=== PATIENT | male | born 2000 | race Caucasian/White ===

== ENCOUNTER 2019-07-05 12:01 | Emergency (ER) | payer MEDICAID ==
[~2019-07-05] VITALS: Ht 185.4 cm; Wt 104.3 kg
[2019-07-05 12:14] VITALS: BP_SYST 153
[2019-07-05 13:06] LABS: BASOPHILS % (AUTO) 0.4 % (0.0-2.0); EOSINOPHILS % (AUTO) 0.4 % (0.0-4.0); HEMATOCRIT 44.8 % (36-54); HEMOGLOBIN 15.2 g/dL (14.0-18.0); LYMPHOCYTES # (AUTO) 1.5 K/uL (1.0-5.5); LYMPHOCYTES % (AUTO) 18.1 % (20.5-51.5); MEAN CORPUSCULAR HEMOGLOBIN 30 pg (27-31); MEAN CORPUSCULAR HGB CONC 34 % (32-36); MEAN CORPUSCULAR VOLUME 87 fL (79.0-98.0); MONOCYTES # (AUTO) 0.8 K/uL (0.0-1.0); MONOCYTES % (AUTO) 9.1 % (1.7-9.3); NEUTROPHILS # (AUTO) 6.1 K/uL (1.8-7.7); PLATELET COUNT (AUTO) 259 K/uL (130-430); RED BLOOD CELL COUNT(AUTO) 5.16 MIL/uL (4.2-6.2); RED CELL DISTRIBUTION WIDTH 14.1 % (9.0-15.0); WHITE BLOOD COUNT (AUTO) 8.4 K/uL (4.5-11.0)
[2019-07-05 13:15] LABS: ANION GAP 10 (5-15); CALCIUM 9.4 mg/dL (8.4-11.0); CHLORIDE 103 mmol/L (98-107); CREATININE 0.77 mg/dL (0.55-1.30); GLUCOSE 88 mg/dL (70-99); POTASSIUM 3.8 mmol/L (3.5-5.1); SODIUM SERUM 140 mmol/L (136-145); UREA NITROGEN, BLOOD 12 mg/dL (8-21)
[2019-07-05 13:18] LABS: GFR AFRICAN AMERICAN 167 mL/min (>90)
[2019-07-05 13:21] LABS: ALANINE AMINOTRANSFERASE 26 U/L (12-78); ALBUMIN 4.6 g/dL (3.4-4.8); ASPARTATE AMINOTRANSFERASE 37 U/L (10-37); TOTAL BILIRUBIN 1.1 mg/dL (0.0-1.0)
[2019-07-05 13:23] LABS: ALCOHOL, BLOOD < 3 mg/dL (<10)
[2019-07-05] MEDS ORDERED: NACL 0.9% 1,000 ML IV ONE (15:06)
[2019-07-05] MEDS ORDERED: KETOROLAC TROMETHAMINE 30 MG VIAL IVP ONE (15:15)
[2019-07-05 15:42] LABS: BASOPHILS % (AUTO) 0.5 % (0.0-2.0); EOSINOPHILS % (AUTO) 0.3 % (0.0-4.0); HEMATOCRIT 45.1 % (36-54); HEMOGLOBIN 15.4 g/dL (14.0-18.0); LYMPHOCYTES # (AUTO) 1.8 K/uL (1.0-5.5); LYMPHOCYTES % (AUTO) 22.6 % (20.5-51.5); MEAN CORPUSCULAR HEMOGLOBIN 29 pg (27-31); MEAN CORPUSCULAR HGB CONC 34 % (32-36); MEAN CORPUSCULAR VOLUME 86 fL (79.0-98.0); MONOCYTES # (AUTO) 0.6 K/uL (0.0-1.0); MONOCYTES % (AUTO) 7.3 % (1.7-9.3); NEUTROPHILS # (AUTO) 5.5 K/uL (1.8-7.7); NEUTROPHILS % (AUTO) 69.3 % (40.0-70.0); PLATELET COUNT (AUTO) 260 K/uL (130-430); RED BLOOD CELL COUNT(AUTO) 5.24 MIL/uL (4.2-6.2); RED CELL DISTRIBUTION WIDTH 13.8 % (9.0-15.0); WHITE BLOOD COUNT (AUTO) 7.9 K/uL (4.5-11.0)
[2019-07-05 15:49] LABS: PROTHROMBIN TIME 10.3 SECS (9.5-12.5)
[2019-07-05 16:00] LABS: AMYLASE 31 U/L (0-100); LIPASE 53 U/L (73-393)
[2019-07-05 16:02] LABS: ALCOHOL, BLOOD < 3 mg/dL (<10)
[2019-07-05] MEDS ORDERED: NACL 0.9% 2,000 ML IV ONE (16:15)
[2019-07-05 16:25] LABS: CKMB RELATIVE INDEX 0.4 (0.0-2.9); CREATINE KINASE MB 4.3 ng/mL (0-3.6)
[2019-07-05 16:27] LABS: ACETAMINOPHEN < 1 ug/mL (1-30)
[2019-07-05 17:40] VITALS: BP_SYST 130
[2019-07-05 17:52] LABS: CKMB RELATIVE INDEX 0.3 (0.0-2.9); CREATINE KINASE MB 3.1 ng/mL (0-3.6)
== END 2019-07-05 17:40 | disposition home or self-care (01) ==
LOC: SED 12:01
DX: S00.01XA Abrasion of scalp, initial encounter (principal); F10.129 Alcohol abuse with intoxication, unspecified; R03.0 Elevated blood-pressure reading, without diagnosis of hypertension; Y04.0XXA Assault by unarmed brawl or fight, initial encounter; Y93.89 Activity, other specified; Y92.89 Other specified places as the place of occurrence of the external cause; Y99.8 Other external cause status
CPT/HCPCS: 36415; 70450; 80053; 82150; 82550; 82553; 83605; 83690; 85025; 85610; 85730; 87040; 96374; 99284; G0480; G0481; G0482; J1885; J7030

== ENCOUNTER 2019-10-20 08:57 | Emergency (ER) | payer MEDICAID ==
[~2019-10-20] VITALS: Ht 185.4 cm; Wt 104.3 kg
--- NOTE | 2019-10-20 09:08 | NUR ---
Patient to ER bed 03 for evaluation. Side rails up. Report given to Wade ANDREWS.
[2019-10-20 09:09] VITALS: BP_SYST 103
--- NOTE | 2019-10-20 09:10 | NUR ---
Patient is awake, alert, and oriented x4. Patient reports that he was skateboarding yesterday and fell at around 1800, bracing his fall with his right hand. Patient presents with swelling to right wrist and aching pain. Patient states that he smoke some marijuana prior to coming in and it helped a little with the pain.
[2019-10-20] MEDS ORDERED: HYDROcodone/ACETAMIN 5-325 MG TAB (NORCO/ VICODIN) PO ONE (09:30)
--- NOTE | 2019-10-20 10:12 | NUR ---
Dr. Valdez at bedside for reduction of right wrist.
[2019-10-20] MEDS ORDERED: IBUPROFEN 800 MG TABLET ONE (10:26)
[2019-10-20 10:44] VITALS: BP_SYST 108
--- NOTE | 2019-10-20 10:44 | NUR ---
Patient given written and verbal discharge instructions and verbalizes understanding. ER MD discussed with patient the results and treatment provided. Patient in stable condition. ID arm band removed. Rx of ibuprofen given. Patient educated on pain management and to follow up with PMD. Pain Scale 8/10, Dr. Valdez is aware. Opportunity for questions provided and answered. Medication side effect fact sheet provided.
== END 2019-10-20 10:44 | disposition home or self-care (01) ==
LOC: SED 08:57
DX: S52.591A Other fractures of lower end of right radius, initial encounter for closed fracture (principal); S52.614A Nondisplaced fracture of right ulna styloid process, initial encounter for closed fracture; V00.131A Fall from skateboard, initial encounter; Y93.89 Activity, other specified; Y92.89 Other specified places as the place of occurrence of the external cause; Y99.8 Other external cause status
CPT/HCPCS: 99283

== ENCOUNTER 2020-08-15 13:33 | Emergency (ER) | payer MEDICAID ==
[~2020-08-15] VITALS: Ht 185.4 cm; Wt 99.8 kg
[2020-08-15 14:25] VITALS: BP_SYST 128
[2020-08-15] MEDS ORDERED: IBUPROFEN 800 MG TABLET PO ONE (15:45)
[2020-08-15 17:09] VITALS: BP_SYST 128
== END 2020-08-15 17:09 | disposition home or self-care (01) ==
LOC: SED 13:33
DX: S62.396A Other fracture of fifth metacarpal bone, right hand, initial encounter for closed fracture (principal); R03.0 Elevated blood-pressure reading, without diagnosis of hypertension; W22.8XXA Striking against or struck by other objects, initial encounter; Y93.89 Activity, other specified; Y92.89 Other specified places as the place of occurrence of the external cause; Y99.8 Other external cause status
CPT/HCPCS: 99283

== ENCOUNTER 2022-03-31 16:13 | Emergency (ER) | payer MEDICAID ==
[~2022-03-31] VITALS: Ht 182.9 cm; Wt 90.7 kg
[2022-03-31 16:15] VITALS: BP_SYST 121
[2022-03-31] MEDS ORDERED: CEPH-548 PO (16:35)
[2022-03-31] MEDS ORDERED: SULF5DRO EACH EYE (16:35)
== END 2022-03-31 16:40 | disposition home or self-care (01) ==
LOC: SED 16:13
DX: H10.501 Unspecified blepharoconjunctivitis, right eye (principal)
CPT/HCPCS: 99283

== ENCOUNTER → 2022-04-28 | Emergency (ER) | payer MEDICAID ==
[~2022-04-28] VITALS: Ht 182.9 cm; Wt 95.3 kg
[~2022-04-28] MED LIST: CEPH-548 PO; SULF5DRO EACH EYE
[2022-04-28 19:20] VITALS: BP_SYST 123
--- NOTE | 2022-04-28 19:20 | NUR ---
Patient triaged and placed in the tent. VSS and patient appears in no acute distress at this time. Awaiting available bed, and MD notified of need for MSE.
--- NOTE | 2022-04-28 20:06 | NUR ---
Patient left without being seen.
== END | disposition home or self-care (01) ==
LOC: SED 19:04
DX: J02.9 Acute pharyngitis, unspecified (principal); H92.03 Otalgia, bilateral; Z53.21 Procedure and treatment not carried out due to patient leaving prior to being seen by health care provider